=== PATIENT | male | born 1965 | race Caucasian/White ===

== ENCOUNTER → 2016-12-04 | Outpatient (CLI) | payer BC | END | disposition home or self-care (01) | LOC: RAD 10:21 | DX: M77.11 Lateral epicondylitis, right elbow (principal); M25.421 Effusion, right elbow ==

== ENCOUNTER 2019-11-01 18:15 | Emergency (ER) | payer OTHER ==
[~2019-11-01] VITALS: Wt 79.4 kg
[2019-11-01 19:32] LABS: BILIRUBIN NEGATIVE (NEGATIVE); BLOOD 3+ (NEGATIVE); CLARITY CLEAR (CLEAR); COLOR YELLOW (YELLOW); GLUCOSE NEGATIVE (NEGATIVE); KETONE NEGATIVE (NEGATIVE); LEUKO ESTERASE NEGATIVE (NEGATIVE); NITRITE NEGATIVE (NEGATIVE); UROBILINOGEN 0.2 E.U./dl (0.2-1.0)
[2019-11-01 19:36] LABS: RBC 51-100 rbc/hpf (0-2)
[2019-11-01] MEDS ORDERED: FLOMAX0.4 MG PO (21:31)
[2019-11-01] MEDS ORDERED: NORCO 5-325 TA1 EACH PO (21:31)
[2019-11-01] MEDS ORDERED: IBU800 MG PO (21:31)
[2019-11-02] MEDS ORDERED: PHENERGAN25 M3 PO (08:40)
== END 2019-11-01 21:42 | disposition home or self-care (01) ==
LOC: ED 18:15
PROVIDERS: Physician Assistant
DX: N13.2 Hydronephrosis with renal and ureteral calculous obstruction (principal); Z87.442 Personal history of urinary calculi; Z88.0 Allergy status to penicillin; Z79.899 Other long term (current) drug therapy

== ENCOUNTER 2019-11-02 04:38 | Emergency (ER) | payer OTHER ==
[~2019-11-02 04:38] MED LIST: FLOMAX0.4 MG PO; IBU800 MG PO; NORCO 5-325 TA1 EACH PO
[2019-11-02 06:43] LABS: BASO # 0.1 10*3/uL (0.0-0.1); BASO % 0.5 % (0.0-1.0); EOS # 0.1 10*3/uL (0.0-0.4); EOS % 0.6 % (1.0-4.0); HEMATOCRIT 38.4 % (42.0-52.0); LYMPH # 1.4 10*3/uL (1.3-4.4); LYMPH % 10.1 % (27.0-41.0); MEAN CELL VOLUME 90.1 fl (80.0-94.0); MEAN CORPUSCULAR HGB CONC 33.3 g/dl (33.0-37.0); MEAN PLATELET VOLUME 10.7 fl (9.6-12.3); MONO # 0.8 10*3/uL (0.1-1.0); MONO % 6.1 % (3.0-9.0); NEUT # 11.2 10*3/uL (2.3-7.9); NEUT % 82.4 % (47.0-73.0); PLATELET COUNT AUTOMATED 188 10*3/uL (130-400); RED BLOOD COUNT 4.26 10*6/uL (4.50-5.90); RED CELL DISTRI WIDTH 12.3 % (0-14.5); WHITE BLOOD COUNT 13.6 10*3/uL (4.8-10.8)
[2019-11-02 06:58] LABS: ALBUMIN 3.2 gm/dl (3.1-4.5); ALKALINE PHOSPHATASE 38 U/L (45-117); BUN 19 mg/dl (7-24); CHLORIDE 112 mmol/L (98-107); CREATININE 1.24 mg/dL (0.70-1.30); LIPASE 82 U/L (73-393); POTASSIUM 4.1 mmol/L (3.5-5.1); SGOT/AST 15 IU/L (3-35); SGPT/ALT 17 U/L (12-78); SODIUM 141 mmol/L (136-145)
[2019-11-02] MEDS ORDERED: PHENERGAN25 M3 PO (08:40)
== END 2019-11-02 08:53 | disposition home or self-care (01) ==
LOC: ED 04:38
PROVIDERS: Emergency Medicine
DX: N20.1 Calculus of ureter (principal); R11.2 Nausea with vomiting, unspecified; Z88.0 Allergy status to penicillin; Z79.899 Other long term (current) drug therapy; Z87.442 Personal history of urinary calculi

== ENCOUNTER → 2019-11-27 | Outpatient (CLI) | payer OTHER ==
[~2019-11-27] MED LIST changes: +PHENERGAN25 M3 PO
[2019-11-27 14:34] LABS: BASO # 0.1 10*3/uL (0.0-0.1); BASO % 1.2 % (0.0-1.0); EOS # 0.2 10*3/uL (0.0-0.4); EOS % 2.5 % (1.0-4.0); HEMATOCRIT 40.9 % (42.0-52.0); LYMPH # 2.6 10*3/uL (1.3-4.4); LYMPH % 33.5 % (27.0-41.0); MEAN CELL VOLUME 89.1 fl (80.0-94.0); MEAN CORPUSCULAR HGB 30.3 pg (27.0-31.0); MEAN PLATELET VOLUME 11.2 fl (9.6-12.3); MONO # 0.4 10*3/uL (0.1-1.0); MONO % 5.5 % (3.0-9.0); NEUT # 4.4 10*3/uL (2.3-7.9); PLATELET COUNT AUTOMATED 214 10*3/uL (130-400); RED BLOOD COUNT 4.59 10*6/uL (4.50-5.90); RED CELL DISTRI WIDTH 12.2 % (0-14.5); WHITE BLOOD COUNT 7.6 10*3/uL (4.8-10.8)
[2019-11-27 14:37] LABS: BILIRUBIN NEGATIVE (NEGATIVE); BLOOD NEGATIVE (NEGATIVE); CLARITY CLEAR (CLEAR); COLOR YELLOW (YELLOW); GLUCOSE NEGATIVE (NEGATIVE); KETONE NEGATIVE (NEGATIVE); LEUKO ESTERASE NEGATIVE (NEGATIVE); NITRITE NEGATIVE (NEGATIVE); PH 6.5 (5.0-9.0); SPECIFIC GRAVITY 1.005 (1.005-1.030); UROBILINOGEN 0.2 E.U./dl (0.2-1.0)
[2019-11-27 14:49] LABS: ALBUMIN 4.2 gm/dl (3.1-4.5); ALKALINE PHOSPHATASE 45 U/L (45-117); BUN 18 mg/dl (7-24); CHLORIDE 105 mmol/L (98-107); CREATININE 0.89 mg/dL (0.70-1.30); POTASSIUM 4.1 mmol/L (3.5-5.1); SGOT/AST 18 IU/L (3-35); SGPT/ALT 24 U/L (12-78); SODIUM 139 mmol/L (136-145); T3 UPTAKE 33 % (31-39); THYROXINE (T4) TOTAL 9.6 ug/dl (4.5-12.1); TOTAL PROTEIN 7.6 gm/dL (6.4-8.2)
== END | disposition home or self-care (01) ==
LOC: US 13:00 → LAB 13:23
PROVIDERS: Nurse Practitioner Family
DX: N13.30 Unspecified hydronephrosis (principal); N20.2 Calculus of kidney with calculus of ureter

== ENCOUNTER → 2019-12-24 | Outpatient (CLI) | payer OTHER | END | disposition home or self-care (01) | LOC: CT 13:00 | DX: N20.0 Calculus of kidney (principal) ==